=== PATIENT | female | born 1940 | race Caucasian/White ===

== ENCOUNTER 2016-10-02 09:39 | Inpatient (IN) | payer MEDICARE, OTHER ==
--- NOTE | 2016-09-29 11:24 | HP ---
DATE OF CLINIC: 09/27/2016 DIANN WELLER : 1940 PLANNED PROCEDURE: Right Total Hip Arthroplasty Revision DATE OF PROCEDURE: October 02, 2016 SURGEON: Dr. Hermann Figueroa PCP: Dr. 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 * Medication list reviewed with patient allergy list reviewed with patient. Mrs. Weller is in today pre-operatively for her upcoming revision right total hip arthroplasty with Dr. Figueroa on 10/02/16. Patient presents in good spirits and is ready to proceed. She denies recent illness or change in health. She did note having a near complete cervical spine fusion at [facility] approximately 2 years ago necessitating appropriate precautions during her upcoming R SUDEEP. Patient denies any prior surgical complications. She would like to rehabilitate at [facility] in [place] as she lives independently at home. Her recent consult with Dr. Figueroa follows. 75-year-old female well-known to me for bilateral knee arthroplasties as well as a right hybrid total hip arthroplasty from 2000. Her knee arthroplasties were by Dr. Wan almost 20 years ago. She has right groin discomfort as well as lateral hip pain. I saw her for a f/u in February and she seemed to be doing reasonably well with this, but has noted increasing lack of trust of the hip. No radicular pain, although she does have chronic, bilateral peripheral sensory neuropathy. She has known lumbar spondylosis, is s/p a previous decompression at L3-4 and L4-5. She denies knee pain. Specific reference to her hip radiographs in February demonstrated asymmetric polyethylene wear. She is wondering about treatment options. CURRENT MEDICATION * Acetaminophen 325 MG Tablet as needed 0 days, 0 refills * AmLODIPine Besylate 10 MG Tablet once a day 0 days, 0 refills * Atorvastatin Calcium 20 MG Tablet 1 once a day, 90 days, 1 refills * B Complex Tablet 1 once a day 0 days, 0 refills * Biotin 5000 MCG Capsule 1 once a day 0 days, 0 refills * Calcium 500 MG Tablet once a day 0 days, 0 refills * CoQ-10 100 MG Capsule once a day 0 days, 0 refills * Daily Multiple Vitamins/Min Tablet once a day 0 days, 0 refills * HydroCHLOROthiazide 12.5 MG Tablet 1 once a day, 90 days, 2 refills * Losartan Potassium 25 MG Tablet 1 once a day, 90 days, 3 refills * Lyrica 150 MG Capsule 1 tab daily. [facility], 90 days, 3 refills * Melatonin 3 MG Tablet 1 once a day 0 days, 0 refills * MetroCream 0.75 % Cream apply twice a day on affected area, 30 days, 2 refills * Nabumetone 750 MG Tablet use as directed Take two on Sun, Sun, Wed, Sun take 3 in divided doses , , Sat. [facility] scripts home delivery, 90 days, 1 refills * Omeprazole 20 MG Tablet Delayed Release 1 once a day. [facility], 90 days, 3 refills * Vitamin C 500 MG Tablet 1 once a day 0 days, 0 refills PAST MEDICAL/SURGICAL HISTORY Reported: No recent change in medical history. Medical: Bladder disease, joint problems Arthritis, a fracture neck, Reported numbness, Reported tingling, renal history, history of Arthritis, Depression, Hypertension, Osteoporosis, and Vertigo. Surgical / Procedural: Prior surgery neck fracture repaired 09/21/[address] [facility]. Replacement of a hip Right hip replaced 04/2001 and of a knee Right knee replaced 1996, Left knee replaced 08/1999. Tests: Blood pressure was high. Diagnoses: Hypertension High Blood Pressure. Thyroid disorder. Osteoarthritis. Anxiety disorder NOS Cataract Surgery right hip replacement - 2000 right knee replacement - 1996 left knee replacement - 1998 laminectomy lumbar - 2004. Procedural: * Colonoscopy with biopsy, DONNA 03/23/16 Surgical: * Tonsillectomy 194 * Orthopedic surgery both knees hip SOCIAL HISTORY Social history unchanged. Behavioral: Caffeine use, former smoker quit 1977, and non-smoker quit smoking stopped in 1977 after smoking half a pack a day for 15 years. Smoking status: Former smoker. Alcohol: Alcohol 1-2 per week and alcohol use - one per week. Home Environment: Lives with spouse. Work: Work history Retired 7 yrs ago from [employer] and occupation Retired. ALLERGIES * Nuts FAMILY HISTORY Father ill heart disease Mother ill cancer,hbp Children 2 Family history unchanged Mother osteoarthritis, breast ca, HTN, stroke GM from mother side osteoarthritis father heart disease Acute myocardial infarction father Hypertension mother grandmothers Stroke syndrome mother Depression father Breast cancer - mother REVIEW OF SYSTEMS Systemic: No fever and no recent weight change. Head: No head symptoms. Cardiovascular: Cardiovascular symptoms HTN. Pulmonary: No pulmonary symptoms. Gastrointestinal: No gastrointestinal symptoms. Psychological: No psychological symptoms. Skin: No skin lesions and no rash. PHYSICAL FINDINGS * Vitals taken 09/27/2016 12:03 pm BP-Sitting R 178/88 mmHg 100 - 120/56 - 80 BP Cuff Size Regular Pulse Rate-Sitting 78 bpm 50 - 100 Temp-Oral 97.3 F 96 - 101 Height 63 in 59 - 68 Weight 150 lbs 95 - 175 Body Mass Index 26.6 kg/m2 Body Surface Area 1.71 m2 Pain Level 7 Ears, Nose, Throat: * ENT: normal. Lungs: * Clear to auscultation. Cardiovascular: Heart Rate and Rhythm: * Normal. Abdomen: * Normal. Neurological: Motor: * Dominant Hand = Right Hand. Patient is a well-developed, well-nourished female in no acute distress, normal appearing mood and affect. She has a slightly wide-based, stiff-legged gait, negative Trendelenburg and level pelvis. Evaluation of the right hip girdle shows skin integrity to be well preserved. She has a well-healed posterolateral incision. No wounds, rashes or lesions. ROM is 100 degrees flexion, 55 degrees of abduction, 25 degrees IR, 60 degrees ER. She can adduct past the midline and extend fully. This is relatively comparable to the contralateral hip. She is tender directly over the trochanter bilaterally, worse on the right. NT in the groin, NT in the sciatic notch. She has mild discomfort with resisted hip flexion. Thigh is soft and NT. Evaluation of the knee shows a well-healed anterior incision. No swelling or effusion. No periarticular tenderness. Motion is 0-110 degrees. Good joint play and alignment. Calf is soft and NT. Distally she has some stocking glove paresthesias bilaterally, but otherwise neurovascular exam is grossly intact and symmetric without focal deficit. TESTS X-rays obtained 06/28/16 are compared to films from 02/23/16. She has a cemented femoral stem with a press-fit acetabular component. There is linear zone I lucency that has shown no evidence of progression. 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 ASSESSMENT 15 years post right SUDEEP with asymmetric polyethylene wear, nothing to suggest ivanna progressive loosening of the acetabular component. She also has fairly notable lumbar spondylosis. I suspect that her symptoms are multi-factorial and likely related to her back as well as her hip. She is also s/p bilateral total knee arthroplasties and she has degenerative disease of the contralateral hip, all of which may play a role. THERAPY * Patient fall risk screen positive. * Patient eligible for fall risk assessment. * Patient received fall risk assessment. COUNSELING/EDUCATION * Education and counseling Total Joint Book given PLAN * OTHER OxyCONTIN 10 MG T12A, 1 po q 12 hours-TO BE USED FOR AFTER SURGERY, 10 days, 0 refills TraMADol HCl 50 MG TABS, 1 po q 6 hours prn pain-TO BE USED FOR AFTER SURGERY, 3 days, 0 refills OxyCODONE HCl 5 MG TABS, 1-2 po q 4 hours for break thru pain if needed-TO BE USED FOR AFTER SURGERY, 3 days, 0 refills Right total hip arthroplasty revision. Discussed with patient in detail the limitations, expectations as well as risks and possible complications of surgery including, but not limited to wound problems or infection, neurovascular injury, continued hip pain or dysfunction, postop instability including the possibility of dislocation and/or postop leg length discrepancy, and the possibility of prosthetic wear or failure over time that may require additional operative or non-operative treatment. Patient also realizes the perioperative risks including risks associated with anesthesia and would like to proceed. A full PAR conference was held, questions and concerns addressed and informed consent was obtained. Patient will be sent from my office for completion of the preoperative workup[facility]. Patient will use enteric coated aspirin postoperatively for DVT prophylaxis. Patient would like to perform their postop PT at [facility] [place] with outpatient therapy to follow, right total hip arthroplasty protocol, posterior approach. CARE TEAM Emelia Freedman M.D. Internal Medicine Prieto Dudley MD Surgery Hermann Figueroa MD Orthopaedic Surgery Jaylon Herndon MD Sports Medicine Ciaran Razo MD [facility] CC: Ciaran Perez MD, [facility] [place] RS/sg
[~2016-10-02 09:39] MED LIST: BUPIVACAINE 0.25% (MDV) 20 ML in SODIUM CHLORIDE 0.9% FLUSH 20 ML IF PRN; BUPIVACAINE 0.25% (MDV) 24 ML, MORPHINE SULFATE 8 MG, EPINEPHRINE 0.3 MG in SODIUM CHLO... IF PRN; CEFAZOLIN SODIUM 2 GRAM PREMIX 100 ML IV PRN; CELECOXIB 200 MG CAPSULE PO ONE; CLONIDINE HCL 0.1 MG/24 HR (7 DAY PATCH) TD SCH; FAMOTIDINE 20 MG TABLET PO ONE; GABAPENTIN 600 MG TABLET PO ONE; ONDANSETRON 4 MG/2ML 2 ML VIAL IV ONE; OXYCODONE HCL 10 MG TAB.SR PO ONE; POLYMYXIN B SULFATE 500,000 UNITS, BACITRACIN 25,000 UNITS in SODIUM CHLORIDE 3 L IRRIG... IR PRN; TRAMADOL HCL 50 MG TABLET PO ONE; TRANEXAMIC ACID 1,000 MG in SODIUM CHLORIDE 0.9% 100 ML IV PRN
--- NOTE | 2016-12-01 10:45 | HP ---
DATE OF CLINIC: 11/22/2016 DIANN WELLER : 1940 PLANNED PROCEDURE: Right Total Hip Arthroplasty Revision DATE OF SURGERY: December 04, 2016 SURGEON: Hermann Figueroa M.D. 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 * Medication list reviewed with patient allergy list reviewed with patient. Mrs. Weller is in today pre-operatively for her upcoming revision right total hip arthroplasty with Dr. Figueroa on 12/04/16. Patient presents in good spirits and is ready to proceed. She denies recent illness or change in health. She reports her assisted living facility did have a recent [place] virus exposure and the residents were quarantined however the patient was never symptomatic. She did note having a near complete cervical spine fusion at [facility] approximately 2 years ago necessitating appropriate precautions during her upcoming R SUDEEP. Patient denies any prior surgical complications. She would like to rehabilitate at [facility] in [place] as she lives independently at home. Her recent consult with Dr. Figueroa follows. 76-year-old female well-known to me for bilateral knee arthroplasties as well as a right hybrid total hip arthroplasty from 2000. Her knee arthroplasties were by Dr. Wan almost 20 years ago. She has right groin discomfort as well as lateral hip pain. I saw her for a f/u in February and she seemed to be doing reasonably well with this, but has noted increasing lack of trust of the hip. No radicular pain, although she does have chronic, bilateral peripheral sensory neuropathy. She has known lumbar spondylosis, is s/p a previous decompression at L3-4 and L4-5. She denies knee pain. Specific reference to her hip radiographs in February demonstrated asymmetric polyethylene wear. She is wondering about treatment options. After discussion and review of treatment options, both operative and non-operative, she has elected to proceed with surgery and presents today preoperatively. CURRENT MEDICATION * Acetaminophen 325 MG Tablet as needed 0 days, 0 refills * AmLODIPine Besylate 10 MG Tablet once a day 0 days, 0 refills * Atorvastatin Calcium 20 MG Tablet 1 once a day, 90 days, 1 refills * B Complex Tablet 1 once a day 0 days, 0 refills * Biotin 5000 MCG Capsule 1 once a day 0 days, 0 refills * Calcium 500 MG Tablet once a day 0 days, 0 refills * CoQ-10 100 MG Capsule once a day 0 days, 0 refills * Daily Multiple Vitamins/Min Tablet once a day 0 days, 0 refills * HydroCHLOROthiazide 12.5 MG Tablet 1 once a day, 90 days, 2 refills * Losartan Potassium 25 MG Tablet 1 once a day, 90 days, 3 refills * Losartan Potassium 25 MG Tablet 1 once a day, 90 days, 2 refills * Lyrica 150 MG Capsule 1 tab daily. [facility], 90 days, 3 refills * Melatonin 3 MG Tablet 1 once a day 0 days, 0 refills * MetroCream 0.75 % Cream apply twice a day on affected area, 30 days, 2 refills * Nabumetone 750 MG Tablet use as directed Take two on Sun, Mon, Wed, FriTake 3 in divided doses , Th, Sat. [facility] scripts home delivery, 90 days, 1 refills * Omeprazole 20 MG Tablet Delayed Release 1 once a day. [facility], 90 days, 3 refills * OxyCODONE HCl 5 MG Tablet 1-2 po q 4 hours for break thru pain if needed-TO BE USED FOR AFTER SURGERY, 3 days, 0 refills * OxyCONTIN 10 MG Tablet ER 12 Hour Abuse-Deterrent 1 po q 12 hours-TO BE USED FOR AFTER SURGERY, 10 days, 0 refills * Vitamin C 500 MG Tablet 1 once a day 0 days, 0 refills PAST MEDICAL/SURGICAL HISTORY Reported: No recent change in medical history. Medical: Bladder disease, joint problems Arthritis, a fracture neck, Reported numbness, Reported tingling, renal history, history of Arthritis, Depression, Hypertension, Osteoporosis, and Vertigo. Surgical / Procedural: Prior surgery neck fracture repaired 09/21/2014 @ [facility]. Replacement of a hip Right hip replaced 04/2001 and of a knee Right knee replaced 1996, Left knee replaced 08/1999. Tests: Blood pressure was high. Diagnoses: Hypertension High Blood Pressure. Thyroid disorder. Osteoarthritis. Anxiety disorder NOS Cataract Surgery right hip replacement - 2000 right knee replacement - 1996 left knee replacement - 1998 laminectomy lumbar - 2004. Procedural: * Colonoscopy with biopsy, DONNA 03/23/16 Surgical: * Tonsillectomy 194 * Orthopedic surgery both knees hip SOCIAL HISTORY Social history unchanged. Behavioral: Caffeine use, former smoker quit 1977, and non-smoker quit smoking stopped in 1977 after smoking half a pack a day for 15 years. Smoking status: Former smoker. Alcohol: Alcohol 1-2 per week and alcohol use - one per week. Home Environment: Lives with spouse. Work: Work history Retired 7 yrs ago from [employer] and occupation Retired. ALLERGIES * Myrbetriq Reaction: Hives in mouth * Nuts FAMILY HISTORY Father ill heart disease Mother ill cancer,hbp Children 2 Family history unchanged Mother osteoarthritis, breast ca, HTN, stroke GM from mother side osteoarthritis father heart disease Acute myocardial infarction father Hypertension mother grandmothers Stroke syndrome mother Depression father Breast cancer - mother REVIEW OF SYSTEMS Systemic: No fever and no recent weight change. Head: No head symptoms. Cardiovascular: No cardiovascular symptoms. Pulmonary: No pulmonary symptoms. Gastrointestinal: No gastrointestinal symptoms. Psychological: No psychological symptoms. Skin: No skin lesions and no rash. PHYSICAL FINDINGS * Vitals taken 11/22/2016 02:34 pm BP-Sitting R 154/78 mmHg 100 - 120/56 - 80 Pulse Rate-Sitting 98 bpm 50 - 100 Temp-Oral 96.9 F 96 - 101 Height 63 in 59 - 68 Weight 150 lbs 12.8 oz 95 - 175 Body Mass Index 26.7 kg/m2 Body Surface Area 1.72 m2 Pain Level 8 Ears, Nose, Throat: * ENT: normal. Lungs: * Clear to auscultation. Cardiovascular: Heart Rate and Rhythm: * Normal. Abdomen: * Normal. Neurological: Motor: * Dominant Hand = Right Hand. Patient is a well-developed, well-nourished female in no acute distress, normal appearing mood and affect. She has a slightly wide-based, stiff-legged gait, negative Trendelenburg and level pelvis. Evaluation of the right hip girdle shows skin integrity to be well preserved. She has a well-healed posterolateral incision. No wounds, rashes or lesions. ROM is 100 degrees flexion, 55 degrees of abduction, 25 degrees IR, 60 degrees ER. She can adduct past the midline and extend fully. This is relatively comparable to the contralateral hip. She is tender directly over the trochanter bilaterally, worse on the right. NT in the groin, NT in the sciatic notch. She has mild discomfort with resisted hip flexion. Thigh is soft and NT. Evaluation of the knee shows a well-healed anterior incision. No swelling or effusion. No periarticular tenderness. Motion is 0-110 degrees. Good joint play and alignment. Calf is soft and NT. Distally she has some stocking glove paresthesias bilaterally, but otherwise neurovascular exam is grossly intact and symmetric without focal deficit. TESTS X-rays obtained 06/28/16 are compared to films from 02/23/16. She has a cemented femoral stem with a press-fit acetabular component. There is linear zone I lucency that has shown no evidence of progression. 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 ASSESSMENT 15 years post right SUDEEP with asymmetric polyethylene wear, nothing to suggest ivanna progressive loosening of the acetabular component. She also has fairly notable lumbar spondylosis. I suspect that her symptoms are multi-factorial and likely related to her back as well as her hip. She is also s/p bilateral total knee arthroplasties and she has degenerative disease of the contralateral hip, all of which may play a role. THERAPY * Patient fall risk screen positive walker. * Patient eligible for fall risk assessment. * Patient received fall risk assessment. PLAN * Unilateral primary osteoarthritis, right hip Physical Therapy: [facility] [phone] Right total hip arthroplasty revision. Discussed with patient in detail the limitations, expectations as well as risks and possible complications of surgery including, but not limited to wound problems or infection, neurovascular injury, continued hip pain or dysfunction, postop instability including the possibility of dislocation and/or postop leg length discrepancy, and the possibility of prosthetic wear or failure over time that may require additional operative or non-operative treatment. Patient also realizes the perioperative risks including risks associated with anesthesia and would like to proceed. A full PAR conference was held, questions and concerns addressed and informed consent was obtained. Patient will be sent from my office for completion of the preoperative workup. [facility] medical management. Patient will use enteric coated aspirin postoperatively for DVT prophylaxis. Patient would like to perform their postop PT at [facility] with outpatient therapy to follow, right total hip arthroplasty protocol, posterior approach. CARE TEAM Emelia Freedman M.D. Internal Medicine Prieto Dudley MD Surgery Hermann Figueroa MD Orthopaedic Surgery Jaylon Herndon MD Sports Medicine Ciaran Razo MD [facility] Bowen King MD Urology CC: Ciraan Perez MD, Emre Cortez [facility] RS/sg
[2016-12-04] MEDS ORDERED: BUPIVACAINE 0.25% (MDV) 24 ML, MORPHINE SULFATE 8 MG, EPINEPHRINE 0.3 MG in SODIUM CHLO... IF PRN (05:30)
[2016-12-04] MEDS ORDERED: CEFAZOLIN SODIUM 2 GRAM PREMIX 100 ML IV PRN (05:30)
[2016-12-04] MEDS ORDERED: CELECOXIB 200 MG CAPSULE PO ONE (05:30)
[2016-12-04] MEDS ORDERED: ONDANSETRON 4 MG/2ML 2 ML VIAL IV ONE (05:30)
[2016-12-04] MEDS ORDERED: FAMOTIDINE 20 MG TABLET PO ONE (05:30)
[2016-12-04] MEDS ORDERED: CLONIDINE HCL 0.1 MG/24 HR (7 DAY PATCH) TD SCH (05:30)
[2016-12-04] MEDS ORDERED: TRAMADOL HCL 50 MG TABLET PO ONE (05:30)
[2016-12-04] MEDS ORDERED: OXYCODONE HCL 10 MG TAB.SR PO ONE ×2 (05:30→05:33)
[2016-12-04] MEDS ORDERED: GABAPENTIN 600 MG TABLET PO ONE (05:30)
[2016-12-04] MEDS ORDERED: TRAMADOL HCL 50 MG TABLET ONE (05:33)
[2016-12-04] MEDS ORDERED: IV START KIT ONE (05:33)
[2016-12-04] MEDS ORDERED: ONDANSETRON 4 MG/2ML 2 ML VIAL ONE (05:33)
[2016-12-04] MEDS ORDERED: LACTATED RINGERS 1,000 ML ONE (05:33)
[2016-12-04] MEDS ORDERED: GABAPENTIN 600 MG TABLET ONE (05:34)
[2016-12-04] MEDS ORDERED: CLONIDINE HCL 0.1 MG/24 HR (7 DAY PATCH) TD ONE (05:34)
[2016-12-04] MEDS ORDERED: FAMOTIDINE 20 MG TABLET ONE (05:34)
[2016-12-04] MEDS ORDERED: CELECOXIB 200 MG CAPSULE ONE (05:34)
[2016-12-04] MEDS ORDERED: FENTANYL 100 MCG/2 ML VIAL ONE (06:46)
[2016-12-04] MEDS ORDERED: MIDAZOLAM HCL 1 MG/ML 2ML VIAL ONE ×2 (06:46→09:40)
[2016-12-04] MEDS ORDERED: PROPOFOL 20 ML IV ONE (06:47)
[2016-12-04] MEDS ORDERED: SPINAL PROCEDURAL TRAY 1 EACH ONE (07:01)
[2016-12-04] MEDS ORDERED: TRANEXAMIC ACID 1,000 MG in SODIUM CHLORIDE 0.9% 100 ML IV PRN (07:30)
[2016-12-04] MEDS ORDERED: BUPIVACAINE 0.25% (MDV) 20 ML in SODIUM CHLORIDE 0.9% FLUSH 20 ML IF PRN (07:30)
[2016-12-04] MEDS ORDERED: POLYMYXIN B SULFATE 500,000 UNITS, BACITRACIN 25,000 UNITS in SODIUM CHLORIDE 3 L IRRIG... IR PRN (07:30)
[2016-12-04] MEDS ORDERED: ONDANSETRON 4 MG/2ML 2 ML VIAL IV PRN ×2 (08:45→10:48)
[2016-12-04] MEDS ORDERED: HYDRALAZINE HCL 20 MG/1 ML VIAL IV PRN (08:45)
[2016-12-04] MEDS ORDERED: MEPERIDINE 25 MG/ML SYRINGE IV PRN (08:45)
[2016-12-04] MEDS ORDERED: FENTANYL 100 MCG/2 ML VIAL IV PRN (08:45)
[2016-12-04] MEDS ORDERED: PROMETHAZINE HCL 25 MG/ML VIAL IM PRN (08:45)
[2016-12-04] MEDS ORDERED: ATROPINE SULFATE 0.4 MG/1 ML VIAL IV PRN (08:45)
[2016-12-04] MEDS ORDERED: NALOXONE HCL 0.4 MG/ML VIAL IV PRN (08:45)
[2016-12-04] MEDS ORDERED: HYDROMORPHONE HCL 1 MG/ML SYRINGE IV PRN (08:45)
[2016-12-04] MEDS ORDERED: LACTATED RINGERS 1,000 ML IV SCH (08:45)
[2016-12-04] MEDS ORDERED: LABETALOL HCL 5 MG/ML 20ML VIAL IV PRN (08:45)
[2016-12-04] MEDS ORDERED: KETAMINE HCL UD SYRINGE 100 MG/2 ML IV ONE (09:04)
--- NOTE | 2016-12-04 10:16 | PCMBPN ---
Brief Post Op Note: Date of Procedure: 12/04/16 Preoperative Diagnosis: s/p right SUDEEP with instability and polyethylene wear Postoperative Diagnosis: same Procedure: revision right SUDEEP Surgeon: Hermann Figueroa MD Assist:Noah (JUAN) Anesthesia: spinal (Vigil) Findings: poly wear with intact components Condition: stable to PAR Complications: none IV Fluids: 1300 mLs of LR Urine Output: 600 mLs Estimated Blood Loss: 200 mLs Tourniquet Time: [N/A] Specimens: none Implants: dena/S&N Drains: none
[2016-12-04] MEDS ORDERED: HYDROMORPHONE HCL 0.5 MG/0.5 ML SYRINGE IV PRN (10:48)
[2016-12-04] MEDS ORDERED: KETOROLAC TROMETHAMINE 30 MG/ML 1 ML VIAL IV PRN (10:48)
[2016-12-04] MEDS ORDERED: MELATONIN 3 MG TABLET PO PRN (10:48)
[2016-12-04] MEDS ORDERED: CALCIUM CARBONATE 500 MG TAB.CHEW PO PRN (10:48)
[2016-12-04 10:58] VITALS: BMI 25.4
--- NOTE | 2016-12-04 11:05 | RAD ---
PELVIS HISTORY: Status post total hip arthroplasty revision. Frontal portable radiograph of the lower pelvis and hips. COMPARISON: 02/23/2016. FINDINGS: POSTPROCEDURAL CHANGE: Status post right total hip arthroplasty. ALIGNMENT: Grossly anatomic. FRACTURE: None identified. ADDITIONAL POSTPROCEDURAL FINDINGS: Soft tissue gas. IMPRESSION: Grossly unremarkable immediate post arthroplasty appearance of the right hip.
[2016-12-04] MEDS ORDERED: PUMP TUBING ONE (12:02)
[2016-12-04] MEDS: D5 1/2NS with 20 mEq KCL 1,000 ML IV SCH ×2 (12:07→20:36)
[2016-12-04] MEDS: NABUMETONE 500 MG TABLET PO SCH ×2 (12:19→20:30)
[2016-12-04] MEDS: REMOVE PATCH 1 EACH UNIT TD SCH ×13 (14:15→15:12)
--- NOTE | 2016-12-04 15:39 | CONS ---
YINKA WELLER [id number] HOSPITALIST CONSULATION DATE OF ADMISSION: December 04, 2016 DATE OF CONSULTATION: December 04, 2016 PHYSICIAN REQUESTING CONSULTATION: Hermann Figueroa M.D. REASON FOR CONSULTATION: For assistance in the perioperative management of the patient's medical problems. These medical problems include chronic essential hypertension, degenerative lumbar and cervical disc disease as well as generalized osteoarthritis. PROCEDURES PERFORMED DURING THE HOSPITALIZATION: Include a revision right total hip arthroplasty performed under spinal anesthesia without complications. SUMMARY OF ADMISSION AND HOSPITAL COURSE: Patient is a 76-year-old female with progressive right hip pain and evidence of asymmetric wear of the polyethylene components of her hip arthroplasty who was admitted for an elective revision arthroplasty today as mentioned above. REVIEW OF SYSTEMS: Negative for any recent illnesses such as fevers, chills, upper respiratory symptoms, cough, dyspnea, wheezing, chest pain, shortness of breath or palpitations. She denies problems with heart burn, nausea, vomiting, abdominal pain or diarrhea. She does suffer from chronic constipation and recently started Colace without very significant results. She has chronic arthralgias associated with her arthritis. She denies any headaches, fainting, blackouts or seizures. No urinary complaints. No recent falls. PAST MEDICAL HISTORY: Significant for: 1. Chronic essential hypertension. 2. She has had a history of obstructive sleep apnea but does not use a CPAP machine. 3. She has also had generalized osteoarthritis. 4. Degenerative disc disease involving the lower back and the cervical spine. 5. She has some mild peripheral neuropathy as well. 6. She has had no recent medical hospitalizations. PAST SURGICAL HISTORY: Significant for: 1. [place] surgery in April of 2015 for rectal prolapse. 2. She had cervical spine fusion in 2013 at C2 to C4. 3. She has had cataract surgery in the early 1999. 4. She had a right hip replacement originally in 2000. 5. Right knee replacement in 1996. 6. Left knee replacement in 1998. 7. Lumbar laminectomy in 2004. 8. She also had a colonoscopy with biopsy in March,. ALLERGIES: SHE HAS NO KNOWN DRUG ALLERGIES BUT IS ALLERGIC TO BRAZIL NUTS AND POSSIBLY HONEYBEE VENOM. CURRENT MEDICATIONS: Her current medication list consists of: 1. Coenzyme Q10 100 mg daily. 2. Lyrica 150 mg daily. 3. Prilosec 20 mg daily. 4. Nabumetone 750 mg tablets, two tablets daily on Sunday, Sunday, Sunday and Sunday and three tablets on Sunday, and Sunday. 5. Multivitamin with minerals once daily. 6. Metronidazole cream applied to the face twice daily for rosacea. 7. Melatonin 3 mg at bedtime as needed for sleep. 8. Cozaar 25 mg daily. 9. Calcium citrate with vitamin D twice daily. 10. Biotin 5 mg daily. 11. Bio D emulsion forte 0.03 cc orally daily. 12. B complex tablet one daily. 13. Vitamin C 500 mg daily. 14. Amlodipine 10 mg daily. 15. Extra strength Tylenol 1000 mg three times daily. FAMILY HISTORY: Significant for a mother who of breast cancer. Father had dementia and coronary artery disease. SOCIAL HISTORY: She is . She lives at the [facility] in [place] which is an independent living facility. She is a former smoker of about 15 pack-years. She quit in 1977. She drinks alcohol maybe once a week. Denies illicit drug use. Her primary care provider is Dr. Ciaran Razo. PHYSICAL EXAMINATION: VITAL SIGNS: BMI is 25.4, weight is 65.1 kilograms. Temperature is 98.8, pulse 72, blood pressure 169/81, respirations 17, oxygen saturation 99% on two liters. GENERAL: This is a well developed, well nourished female in no acute distress. HEENT: Exam is unremarkable. NECK: Supple without lymphadenopathy or thyromegaly. CHEST: Clear to auscultation bilaterally. HEART: Regular rate and rhythm without a murmur. ABDOMEN: Soft, nontender, nondistended with positive bowel sounds. EXTREMITIES: Showed no peripheral edema. Dorsalis pedis pulses are 2+ in the feet bilaterally. Surgical dressing over the right hip is clean, dry and intact. NEUROLOGIC: Exam is nonfocal. LABORATORY STUDIES: Metabolic panel done on November 22, 2016, showed normal electrolytes and a creatinine of 1.2. CBC done on November 22, 2016 showed a white count of 9.3, hemoglobin 11.8, and a platelet count of 462,000. Coagulation profile was normal. Urinalysis was unremarkable. DIAGNOSTIC IMAGING: Included a chest x-ray on September 13, 2016 which showed no acute abnormality. EKG: ASSESSMENT/PLAN: 1. Patient has had a revision right total hip arthroplasty. We will defer to the orthopedic service for management of this. Venous thromboembolism risk is moderate and mechanical measures have been prescribed in addition to full strength aspirin daily. 2. She has chronic essential hypertension on three different medications. I have written parameters for the amlodipine and losartan to be held for low blood pressures. 3. She has degenerative cervical and lumbar disc disease but is managing her chronic pain with nonsteroidal and Tylenol as well as Lyrica. I am going to go ahead and continue her Lyrica and it looks like Dr. Figueroa has cleared her to continue her Relafen. This should be managed adequately with her usual medications plus postoperative pain management. 4. She has some mild chronic constipation, and I have ordered MiraLax scheduled daily at bedtime for her during her hospital stay. 5. She has generalized osteoarthritis which also is managed as above. 6. Further treatment and recommendations will depend on her hospital course. The hospitalist will follow the patient in the perioperative period. She will return to the care of her primary care provider at discharge. cc: Hermann Figueroa M.D. Ciaran Razo M.D.
[2016-12-04] MEDS: OXYCODONE HCL 5 MG TABLET PO PRN ×2 (15:54→20:27)
[2016-12-04] MEDS ORDERED: TRAMADOL HCL 50 MG TABLET PO PRN (16:30)
[2016-12-04] MEDS: ACETAMINOPHEN 500 MG TABLET PO SCH ×2 (16:38→22:55)
[2016-12-04] MEDS: CEFAZOLIN SODIUM 1 GRAM PREMIX 1 G in Premix (D5W) 50 ml 1 EACH IV SCH (16:38)
[2016-12-04] MEDS: DOCUSATE SODIUM 100 MG CAPSULE PO SCH (20:18)
[2016-12-04] MEDS: ASCORBIC ACID 500 MG TABLET PO SCH (20:18)
[2016-12-04] MEDS: POLYETHYLENE GLYCOL 3350 17 G POWD.SUSP PO SCH (20:19)
[2016-12-05] MEDS: CEFAZOLIN SODIUM 1 GRAM PREMIX 1 G in Premix (D5W) 50 ml 1 EACH IV SCH (00:38)
[2016-12-05] MEDS: ACETAMINOPHEN 500 MG TABLET PO SCH ×4 (04:40→23:35)
[2016-12-05] MEDS: D5 1/2NS with 20 mEq KCL 1,000 ML IV SCH (04:41)
[2016-12-05] MEDS: OXYCODONE HCL 5 MG TABLET PO PRN ×5 (04:48→21:49)
[2016-12-05] MEDS ORDERED: REMOVE PATCH 1 EACH UNIT TD SCH (05:30)
[2016-12-05 06:14] LABS: HEMATOCRIT 29.5 % (37.0-47.0); HEMOGLOBIN 9.6 gm/l (12.0-16.0); MEAN CELL VOLUME 100.7 fl (81.0-99.0); MEAN CORPUSCULAR HEMOGLOBIN 32.8 pg (27.0-31.0); MEAN CORPUSCULAR HGB CONC 32.5 g/dl (33.0-37.0); RED CELL DISTRIBUTION WIDTH 13.4 % (11.5-14.5)
[2016-12-05 06:30] LABS: CALCIUM 8.6 mg/dL (8.6-10.3)
[2016-12-05] MEDS ORDERED: HYDROCHLOROTHIAZIDE 12.5 MG CAP PO SCH (09:00)
[2016-12-05] MEDS: AMLODIPINE BESYLATE 5 MG TABLET PO SCH (09:31)
[2016-12-05] MEDS: ASPIRIN (ENTERIC COATED) 325 MG TABLET.EC PO SCH (09:39)
[2016-12-05] MEDS: ASCORBIC ACID 500 MG TABLET PO SCH ×2 (09:39→21:50)
[2016-12-05] MEDS: MULTIVITAMINS 1 TAB TABLET PO SCH (09:39)
[2016-12-05] MEDS: DOCUSATE SODIUM 100 MG CAPSULE PO SCH ×2 (09:40→21:49)
[2016-12-05] MEDS: PANTOPRAZOLE 40 MG TABLET DR PO SCH (09:40)
[2016-12-05] MEDS: LOSARTAN POTASSIUM 50 MG TABLET PO SCH (09:40)
[2016-12-05] MEDS: PREGABALIN 75 MG CAP PO SCH (09:40)
[2016-12-05] MEDS: NABUMETONE 500 MG TABLET PO SCH ×3 (09:41→21:50)
[2016-12-05] MEDS ORDERED: MAGNESIUM HYDROXIDE 30 ML UDCUP PO PRN (10:07)
[2016-12-05] MEDS ORDERED: REMOVE PATCH 1 EACH UNIT TD ONE (10:07)
--- NOTE | 2016-12-05 10:28 | PDOC43 ---
- Subjective Findings: Pt seen this morning having more pain than she did last evening. PT is in the room to get her out of bed. Subjective: Reports Pain Tolerable, Denies Chest Pain, Denies Shortness of Breath, Denies Nausea, Denies Vomiting, Denies Fever - Objective Vital Signs Temperature 98.0 F 12/05/16 07:13 Pulse Rate 76 12/05/16 07:13 Respiratory Rate 14 12/05/16 07:13 Blood Pressure 137/72 12/05/16 07:13 O2 Saturation by Pulse Oximetry 96 12/05/16 07:13 Oxygen Delivery Method Room Air Oxygen Flow Rate 0 Laboratory 12/05/16 05:45 12/05/16 05:45 12/05/16 05:45 RBC 2.93 L MCV 100.7 H MCH 32.8 H MCHC 32.5 L Estimated GFR 81 H Active Medication Orders Category Date Time Status Acetaminophen [Tylenol] Med 12/04/16 17:00 Active 1,000 mg PO Q6H Amlodipine Besylate [Norvasc] Med 12/05/16 09:00 Active 10 mg PO DAILY Ascorbic Acid [Vitamin C] Med 12/04/16 21:00 Active 500 mg PO BID Aspirin (Enteric Coated) [Ecotrin] Med 12/05/16 09:00 Active 325 mg PO DAILY Bisacodyl [Dulcolax] Med 12/07/16 10:07 Active 10 mg [place] DAILY PRN Calcium Carbonate [Tums] Med 12/04/16 10:48 Active 1,000 - 2,000 mg PO Q2H PRN Docusate Sodium [Colace] Med 12/04/16 21:00 Active 100 mg PO BID Hydrochlorothiazide Med 12/05/16 09:00 Active 12.5 mg PO DAILY Hydromorphone HCl [Dilaudid] Med 12/04/16 10:48 Active 0.5 mg IV Q1H PRN Losartan Potassium [Cozaar] Med 12/05/16 09:00 Active 25 mg PO DAILY Magnesium Hydroxide [Milk of Magnesia] Med 12/05/16 10:07 Active 30 ml PO DAILY PRN Melatonin Med 12/04/16 10:48 Active 3 mg PO BEDTIME PRN Multivitamins [One-A-Day] Med 12/05/16 09:00 Active 1 tab PO DAILY Nabumetone [Relafen] Med 12/04/16 11:48 Active 750 mg PO [email or web address] Nabumetone [Relafen] Med 12/05/16 09:00 Active 750 mg PO [email or web address] Ondansetron 4 mg/2ml Vial [Zofran] Med 12/04/16 10:48 Active 4 - 6 mg IV Q6H PRN Oxycodone HCl [Roxicodone] Med 12/04/16 10:48 Active 5 - 10 mg PO Q4H PRN Pantoprazole Sodium [Protonix] Med 12/05/16 09:00 Active 40 mg PO DAILY Polyethylene Glycol 3350 [Miralax] Med 12/04/16 21:00 Active 17 g PO BEDTIME Pregabalin [Lyrica] Med 12/05/16 09:00 Active 150 mg PO DAILY Sodium Chloride 0.9% Flush [Normal Saline 10ml Flush] Med 12/04/16 10:48 Active 10 - 50 ml IV PRN PRN Sodium Chloride 0.9% Flush [Normal Saline 10ml Flush] Med 12/04/16 17:00 Active 10 ml IV Q8HR Tramadol HCl [Ultram] Med 12/04/16 16:30 Active 50 mg PO Q6H PRN Intake and Output 12/03/16 12/04/16 12/05/16 23:59 23:59 23:59 Intake Total 3699 2790 Output Total 3200 925 Balance 499 1865 General: Afebrile HEENT: Atraumatic Lungs: Normal Air Movement Abdomen: Soft, Non-Distended Rectal Exam: Deferred Skin: Normal Color Neurological: Alert, Oriented x 4 - Right Lower Extremity Incision: Dressing Clean/Dry/Intact Motor: Extensor Hallucis Longus: 5/5, Tibialis Anterior: 5/5, Gastrocnemius: 5/5 , Peroneals: 5/5, Quadriceps: 2/5 Gross Sensation to Light Touch: Present: Deep Peroneal Nerve Motion: Calf soft NT Knee rom 0-90 Gentle rom of hip without pain - Problems (1) Status post revision of total hip replacement Status: AcuteAssessment/Plan: Pod#1 1. Physical Therapy:Mobilize with PT/OT. Encouraged bed exercise 2. Pain Control:Per protocol. May need to add long acting narcotic 3. DVT Prophylaxis: ASA, foot pumps and mobility 4. Disposition:Doing fair 5. Medical Issues:Anemia secondary to blood loss- will repeat h/h in the am. Hyponatremia -secondary to volume overload- asymptomatic at this point will monitor
--- NOTE | 2016-12-05 11:38 | PDOC43 ---
- Subjective Chief Complaint: s/p R SUDEEP Revision Main c/o is poor pain control last PM. Controlled now. Anxiety re: d/c plans- wants to go to SNF and not home. Subjective: Reports Pain Tolerable, Reports Tolerating Diet Well, Denies Shortness of Breath, Denies Cough, Denies Chest Pain, Denies Abdominal Pain, Denies Nausea, Denies Vomiting, Denies Fever, Denies Chills - Objective Vital Signs Temperature 97.9 F 12/05/16 11:20 Pulse Rate 77 12/05/16 11:20 Respiratory Rate 16 12/05/16 11:20 Blood Pressure 184/86 12/05/16 11:20 O2 Saturation by Pulse Oximetry 93 12/05/16 11:20 Oxygen Delivery Method Room Air Oxygen Flow Rate 0 Intake and Output 12/04/16 12/05/16 12/06/16 06:59 06:59 06:59 Intake Total 5740 749 Output Total 4125 425 Balance 1615 324 General: Alert, Oriented x3, Cooperative, Other (Anxious appearing. Calms with verbal reassurance.) HEENT: Atraumatic, Mucous membr. moist/pink Lungs: Clear to Auscultation Bilaterally Cardiovascular: Regular Rate and Rhythm Abdomen: Soft, Normal Bowel Sounds, Non-Distended, No Tenderness Extremities: Full ROM, Normal Pulses, No Edema Laboratory 12/05/16 05:45 12/05/16 05:45 Current Medications: Current meds reviewed in EMR. - Problems: Assessment/Plan (1) Status post revision of total hip replacement Status: AcuteAssessment/Plan: Doing well. Pain control adequate now. Post-op care as per ortho. Con't PT/ OT. DVT proph with mech/ASA as per ortho protocol. Caremanagement to address d/ c plan. (2) HTN (hypertension) Qualifiers: Hypertension type: essential hypertension Qualifier Code: (I10) Essential (primary) hypertension Status: ChronicAssessment/Plan: Stable. Parameters written for usual meds. (3) DJD (degenerative joint disease) Qualifiers: Osteoarthritis location: unspecified site Status: ChronicAssessment/Plan : Con't pain regimen as per ortho. VTE Prophylaxis: ASA. Disposition: Anticipate d/c home vs SNF in 1-2 days.
[2016-12-05] MEDS: POLYETHYLENE GLYCOL 3350 17 G POWD.SUSP PO SCH (21:48)
[2016-12-06] MEDS: OXYCODONE HCL 5 MG TABLET PO PRN ×4 (01:43→22:25)
[2016-12-06] MEDS: ACETAMINOPHEN 500 MG TABLET PO SCH ×4 (05:07→22:26)
[2016-12-06 06:01] LABS: HEMATOCRIT 28.7 % (37.0-47.0); HEMOGLOBIN 9.6 gm/l (12.0-16.0)
--- NOTE | 2016-12-06 08:07 | PDOC43 ---
- Subjective Findings: Pt seen this am up and doing fine. She was just up and using the restroom. Pain controlled at this point. Subjective: Reports Pain Tolerable, Denies Chest Pain, Denies Shortness of Breath, Denies Nausea, Denies Vomiting, Denies Fever - Objective Vital Signs Temperature 98.7 F 12/06/16 07:04 Pulse Rate 71 12/06/16 07:04 Respiratory Rate 16 12/06/16 07:46 Blood Pressure 152/83 12/06/16 07:04 O2 Saturation by Pulse Oximetry 94 12/06/16 07:04 Oxygen Delivery Method Room Air Oxygen Flow Rate 0 Laboratory 12/06/16 05:30 12/06/16 05:30 Active Medication Orders Category Date Time Status Acetaminophen [Tylenol] Med 12/04/16 17:00 Active 1,000 mg PO Q6H Amlodipine Besylate [Norvasc] Med 12/05/16 09:00 Active 10 mg PO DAILY Ascorbic Acid [Vitamin C] Med 12/04/16 21:00 Active 500 mg PO BID Aspirin (Enteric Coated) [Ecotrin] Med 12/05/16 09:00 Active 325 mg PO DAILY Bisacodyl [Dulcolax] Med 12/07/16 10:07 Active 10 mg [place] DAILY PRN Calcium Carbonate [Tums] Med 12/04/16 10:48 Active 1,000 - 2,000 mg PO Q2H PRN Docusate Sodium [Colace] Med 12/04/16 21:00 Active 100 mg PO BID Hydromorphone HCl [Dilaudid] Med 12/04/16 10:48 Active 0.5 mg IV Q1H PRN Losartan Potassium [Cozaar] Med 12/05/16 09:00 Active 25 mg PO DAILY Magnesium Hydroxide [Milk of Magnesia] Med 12/05/16 10:07 Active 30 ml PO DAILY PRN Melatonin Med 12/04/16 10:48 Active 3 mg PO BEDTIME PRN Multivitamins [One-A-Day] Med 12/05/16 09:00 Active 1 tab PO DAILY Nabumetone [Relafen] Med 12/04/16 11:48 Active 750 mg PO [email or web address] Nabumetone [Relafen] Med 12/05/16 09:00 Active 750 mg PO [email or web address] Ondansetron 4 mg/2ml Vial [Zofran] Med 12/04/16 10:48 Active 4 - 6 mg IV Q6H PRN Oxycodone HCl [Roxicodone] Med 12/04/16 10:48 Active 5 - 10 mg PO Q4H PRN Pantoprazole Sodium [Protonix] Med 12/05/16 09:00 Active 40 mg PO DAILY Polyethylene Glycol 3350 [Miralax] Med 12/04/16 21:00 Active 17 g PO BEDTIME Pregabalin [Lyrica] Med 12/05/16 09:00 Active 150 mg PO DAILY Sodium Chloride 0.9% Flush [Normal Saline 10ml Flush] Med 12/04/16 10:48 Active 10 - 50 ml IV PRN PRN Sodium Chloride 0.9% Flush [Normal Saline 10ml Flush] Med 12/04/16 17:00 Active 10 ml IV Q8HR Tramadol HCl [Ultram] Med 12/04/16 16:30 Active 50 mg PO Q6H PRN Intake and Output 12/04/16 12/05/16 12/06/16 23:59 23:59 23:59 Intake Total 3699 3830 1050 Output Total 3200 1700 900 Balance 499 2130 150 General: Afebrile HEENT: Atraumatic Lungs: Normal Air Movement Abdomen: Non-Distended Skin: Normal Color Neurological: Alert, Oriented x 4 Psych/Mental Status: Normal Affect, Normal Mood - Right Lower Extremity Motor: Extensor Hallucis Longus: 5/5, Tibialis Anterior: 5/5, Gastrocnemius: 5/5 , Peroneals: 5/5, Quadriceps: 3/5 Gross Sensation to Light Touch: Present: Deep Peroneal Nerve, Superficial Peroneal Nerve Capillary Refill: < 3 Seconds Motion: Calf soft NT Rom knee 0-75 Min assist to SLR - Problems (1) Status post revision of total hip replacement Status: AcuteAssessment/Plan: Pod#2 1. Physical Therapy:Mobilize with PT/OT. Encouraged bed exercise 2. Pain Control:Per protocol. May need to add long acting narcotic 3. DVT Prophylaxis: ASA, foot pumps and mobility 4. Disposition:Doing fine. Probable d/c tomorrow SNF vs home with care 5. Medical Issues: Hyponatremia asymptomatic, will hold HCTZ and fluid restrict repeat BMP in the am. Anemia secondary to surgery asymptomatic. Appreciate hospitalist care and input.
[2016-12-06] MEDS: NABUMETONE 500 MG TABLET PO SCH ×2 (09:04→21:10)
[2016-12-06] MEDS: PANTOPRAZOLE 40 MG TABLET DR PO SCH (09:05)
[2016-12-06] MEDS: ASCORBIC ACID 500 MG TABLET PO SCH ×2 (09:05→21:10)
[2016-12-06] MEDS: PREGABALIN 75 MG CAP PO SCH (09:05)
[2016-12-06] MEDS: LOSARTAN POTASSIUM 50 MG TABLET PO SCH (09:05)
[2016-12-06] MEDS: ASPIRIN (ENTERIC COATED) 325 MG TABLET.EC PO SCH (09:05)
[2016-12-06] MEDS: AMLODIPINE BESYLATE 5 MG TABLET PO SCH (09:06)
[2016-12-06] MEDS: MULTIVITAMINS 1 TAB TABLET PO SCH (09:06)
[2016-12-06] MEDS: DOCUSATE SODIUM 100 MG CAPSULE PO SCH ×2 (09:06→21:10)
--- NOTE | 2016-12-06 15:56 | PDOC43 ---
- Subjective Chief Complaint: s/p R SUDEEP Revision - Objective Vital Signs Temperature 98.2 F 12/06/16 13:45 Pulse Rate 78 12/06/16 13:45 Respiratory Rate 16 12/06/16 13:45 Blood Pressure 140/61 12/06/16 13:45 O2 Saturation by Pulse Oximetry 96 12/06/16 13:45 Oxygen Delivery Method Room Air Oxygen Flow Rate 0 Intake and Output 12/04/16 12/05/16 12/06/16 23:59 23:59 23:59 Intake Total 3699 3830 1050 Output Total 3200 1700 900 Balance 499 2130 150 Laboratory 12/06/16 05:30 12/06/16 05:30 Current Medications: Current meds reviewed in EMR. - Problems: Assessment/Plan (1) Status post revision of total hip replacement Status: AcuteAssessment/Plan: Doing well. Pain control adequate now. Post-op care as per ortho. Con't PT/ OT. DVT proph with mech/ASA as per ortho protocol. Care management to address d/ c plan. (2) DJD (degenerative joint disease) Qualifiers: Osteoarthritis location: unspecified site Status: ChronicAssessment/Plan : Con't pain regimen as per ortho. (3) HTN (hypertension) Qualifiers: Hypertension type: essential hypertension Qualifier Code: (I10) Essential (primary) hypertension Status: ChronicAssessment/Plan: Stable. Parameters written for usual meds. (4) Hyponatremia Status: AcuteAssessment/Plan: 2nd to volume shifts and fluid overload in surgery. She has had this in the past. Will fluid restrict and provide additional sodium chloride. Monitor (5) Anemia Qualifiers: Anemia type: unspecified type Qualifier Code: (D64.9) Anemia, unspecified Status: AcuteAssessment/Plan: unknown if chronic. Stable overnight. Contributing factors include surgical blood loss and IVF dilution VTE Prophylaxis: ASA. Disposition: Anticipate d/c home vs SNF in 1-2 days.
[2016-12-06] MEDS: SODIUM CHLORIDE 1 G TABLET PO SCH (21:10)
[2016-12-06] MEDS: POLYETHYLENE GLYCOL 3350 17 G POWD.SUSP PO SCH (21:10)
[2016-12-07] MEDS: OXYCODONE HCL 5 MG TABLET PO PRN (02:24)
[2016-12-07] MEDS: ACETAMINOPHEN 500 MG TABLET PO SCH ×2 (05:33→11:23)
[2016-12-07 05:54] LABS: HEMATOCRIT 30.6 % (37.0-47.0); HEMOGLOBIN 10.1 gm/l (12.0-16.0)
[2016-12-07 06:13] LABS: CALCIUM 9.3 mg/dL (8.6-10.3)
[2016-12-07 07:18] VITALS: BP 137/61
--- NOTE | 2016-12-07 08:41 | PDOC43 ---
- Subjective Findings: Pt seen this morning. She is improving. States pain is better. She did have a large loose BM this morning. Otherwise no c/o. Will be going to [facility] today. Subjective: Reports Flatus, Reports Pain Tolerable, Denies Chest Pain, Denies Shortness of Breath, Denies Nausea, Denies Vomiting, Denies Fever - Objective Vital Signs Temperature 98.1 F 12/07/16 07:16 Pulse Rate 74 12/07/16 07:16 Respiratory Rate 16 12/07/16 07:16 Blood Pressure 137/61 12/07/16 07:16 O2 Saturation by Pulse Oximetry 93 12/07/16 07:16 Oxygen Delivery Method Room Air Oxygen Flow Rate 0 Laboratory 12/07/16 05:30 12/07/16 05:30 Active Medication Orders Category Date Time Status Acetaminophen [Tylenol] Med 12/04/16 17:00 Active 1,000 mg PO Q6H Amlodipine Besylate [Norvasc] Med 12/05/16 09:00 Active 10 mg PO DAILY Ascorbic Acid [Vitamin C] Med 12/04/16 21:00 Active 500 mg PO BID Aspirin (Enteric Coated) [Ecotrin] Med 12/05/16 09:00 Active 325 mg PO DAILY Bisacodyl [Dulcolax] Med 12/07/16 10:07 Active 10 mg [place] DAILY PRN Calcium Carbonate [Tums] Med 12/04/16 10:48 Active 1,000 - 2,000 mg PO Q2H PRN Docusate Sodium [Colace] Med 12/04/16 21:00 Active 100 mg PO BID Hydromorphone HCl [Dilaudid] Med 12/04/16 10:48 Active 0.5 mg IV Q1H PRN Losartan Potassium [Cozaar] Med 12/05/16 09:00 Active 25 mg PO DAILY Magnesium Hydroxide [Milk of Magnesia] Med 12/05/16 10:07 Active 30 ml PO DAILY PRN Melatonin Med 12/04/16 10:48 Active 3 mg PO BEDTIME PRN Multivitamins [One-A-Day] Med 12/05/16 09:00 Active 1 tab PO DAILY Nabumetone [Relafen] Med 12/04/16 11:48 Active 750 mg PO [email or web address] Nabumetone [Relafen] Med 12/05/16 09:00 Active 750 mg PO [email or web address] Ondansetron 4 mg/2ml Vial [Zofran] Med 12/04/16 10:48 Active 4 - 6 mg IV Q6H PRN Oxycodone HCl [Roxicodone] Med 12/04/16 10:48 Active 5 - 10 mg PO Q4H PRN Pantoprazole Sodium [Protonix] Med 12/05/16 09:00 Active 40 mg PO DAILY Polyethylene Glycol 3350 [Miralax] Med 12/04/16 21:00 Active 17 g PO BEDTIME Pregabalin [Lyrica] Med 12/05/16 09:00 Active 150 mg PO DAILY Sodium Chloride Med 12/06/16 21:00 Active 1 g PO BID Sodium Chloride 0.9% Flush [Normal Saline 10ml Flush] Med 12/04/16 10:48 Active 10 - 50 ml IV PRN PRN Sodium Chloride 0.9% Flush [Normal Saline 10ml Flush] Med 12/04/16 17:00 Active 10 ml IV Q8HR Tramadol HCl [Ultram] Med 12/04/16 16:30 Active 50 mg PO Q6H PRN Intake and Output 12/05/16 12/06/16 12/07/16 23:59 23:59 23:59 Intake Total 3830 2300 600 Output Total 1700 2400 825 Balance 2130 -100 -225 General: Afebrile HEENT: Atraumatic Lungs: Normal Air Movement Abdomen: Soft, Non-Distended Skin: Normal Color Neurological: Alert, Oriented x 4 Psych/Mental Status: Normal Affect, Normal Mood - Right Lower Extremity Incision: Well Approximated, No Drainage, No Erythema, No Ecchymosis Motor: Extensor Hallucis Longus: 5/5, Tibialis Anterior: 5/5, Gastrocnemius: 5/5 , Peroneals: 5/5, Quadriceps: 3/5 Gross Sensation to Light Touch: Present: Deep Peroneal Nerve, Superficial Peroneal Nerve Motion: Calf soft NT Rom knee 0-85 Gentle rom hip w/o pain - Problems (1) Status post revision of total hip replacement Status: AcuteAssessment/Plan: Pod#3 1. Physical Therapy:Mobilize with PT/OT. Encouraged bed exercise. Will continue PT at SNF. WBAT 2. Pain Control:Doing well with oxycodone. 3. DVT Prophylaxis: ASA, foot pumps and mobility 4. Disposition:Doing fine. Probable d/c today to SNF. If meets criteria 5. Medical Issues: Hyponatremia asymptomatic, NA+ improved this am. Appreciate hospitalist care and input.
[2016-12-07] MEDS: AMLODIPINE BESYLATE 5 MG TABLET PO SCH (08:44)
[2016-12-07] MEDS: LOSARTAN POTASSIUM 50 MG TABLET PO SCH (08:44)
[2016-12-07] MEDS: PANTOPRAZOLE 40 MG TABLET DR PO SCH (08:44)
[2016-12-07] MEDS: PREGABALIN 75 MG CAP PO SCH (08:45)
[2016-12-07] MEDS: NABUMETONE 500 MG TABLET PO SCH (08:45)
[2016-12-07] MEDS: SODIUM CHLORIDE 1 G TABLET PO SCH (08:45)
[2016-12-07] MEDS: MULTIVITAMINS 1 TAB TABLET PO SCH (08:45)
[2016-12-07] MEDS: ASCORBIC ACID 500 MG TABLET PO SCH (08:45)
[2016-12-07] MEDS: ASPIRIN (ENTERIC COATED) 325 MG TABLET.EC PO SCH (08:45)
[2016-12-07] MEDS: DOCUSATE SODIUM 100 MG CAPSULE PO SCH ×2 (08:45→09:17)
--- NOTE | 2016-12-07 08:57 | PDOC43 ---
- Subjective Chief Complaint: s/p R SUDEEP Revision Patient awake and alert, feeling well. She is looking forward to leaving today. Denies muscle cramps, lightheadedness, abdominal pain. Subjective: Reports Pain Tolerable, Reports Tolerating Diet Well, Reports Adequate Oral Intake, Reports Bowel Movement, Reports Urinating Without Difficulty, Denies Shortness of Breath, Denies Cough, Denies Chest Pain, Denies Abdominal Pain, Denies Nausea, Denies Vomiting - Objective Vital Signs Temperature 98.1 F 12/07/16 07:16 Pulse Rate 74 12/07/16 07:16 Respiratory Rate 16 12/07/16 07:16 Blood Pressure 137/61 12/07/16 07:16 O2 Saturation by Pulse Oximetry 93 12/07/16 07:16 Oxygen Delivery Method Room Air Oxygen Flow Rate 0 Intake and Output 12/05/16 12/06/16 12/07/16 23:59 23:59 23:59 Intake Total 3830 2300 600 Output Total 1700 2400 825 Balance 2130 -100 -225 General: Alert, Oriented x3, Cooperative, No Acute Distress HEENT: Atraumatic, PERRLA, EOMI, Mucous membr. moist/pink Lungs: Clear to Auscultation Bilaterally, Normal Air Movement Cardiovascular: Regular Rate and Rhythm, Normal S1, Normal S2 Abdomen: Soft, Non-Distended, No Rigid, No Tenderness, No Rebounding Extremities: No Cyanosis, No Edema Neurological: Normal Speech Psych/Mental Status: Normal Mood Laboratory 12/07/16 05:30 12/07/16 05:30 Current Medications: Current meds reviewed in EMR. - Problems: Assessment/Plan (1) Status post revision of total hip replacement Status: AcuteAssessment/Plan: Doing well. Pain control adequate now. Post-op care as per ortho. Con't PT/ OT. DVT proph with mech/ASA as per ortho protocol. Care management to address d/ c plan. (2) DJD (degenerative joint disease) Qualifiers: Osteoarthritis location: unspecified site Status: ChronicAssessment/Plan : Con't pain regimen as per ortho. (3) HTN (hypertension) Qualifiers: Hypertension type: essential hypertension Qualifier Code: (I10) Essential (primary) hypertension Status: ChronicAssessment/Plan: Stable. Parameters written for usual meds. (4) Hyponatremia Status: AcuteAssessment/Plan: 2nd to volume shifts and fluid overload in surgery. She has had this in the past. Will fluid restrict and provide additional sodium chloride. Monitor Improving, sodium this morning is 130 and she remains asymptomatic (5) Anemia Qualifiers: Anemia type: unspecified type Qualifier Code: (D64.9) Anemia, unspecified Status: AcuteAssessment/Plan: unknown if chronic. Stable overnight. Contributing factors include surgical blood loss and IVF dilution VTE Prophylaxis: ASA. Disposition: Anticipate d/c home vs SNF in 1-2 days.
[2016-12-07] MEDS ORDERED: BISACODYL 10 MG SUP PR PRN (10:07)
--- NOTE | 2016-12-07 10:27 | OP ---
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 POSTOPERATIVE DIAGNOSIS: Same PROCEDURE: Revision Right Total Hip Arthroplasty COMPONENTS: 20 degree +4 lipped cross-linked polyethylene liner with a 32mm +5 cobalt chrome femoral head for an [place] V40 femoral stem. SURGEON: Henry ASSIST: Noah GARRETT) ANESTHESIA: Spinal per Vigil EBL: 200 cc URINE OUTPUT: 600 cc IVF REPLACEMENT: Per anesthesia, 1.3 liters crystalloid. DRAINS: None COMPLICATIONS: None SPECIMENS: None HISTORY: Briefly, patient is a 76-year-old female who is over 15 years post right SUDEEP from which she has done well until recently. Unfortunately she has developed a feeling of instability consistent with her exam. Radiographs demonstrate asymmetric polyethylene wear. Recommendation to consider revision arthroplasty. For additional details, refer to previously dictated Preoperative History and Physical Exam. A full PAR conference was held, questions and concerns were addressed, and informed consent was obtained. FINDINGS: There was asymmetric polyethylene wear, particularly superior-posterior with some cavitation. No evidence of acetabular component loosening or malposition. Similarly, no evidence of femoral stem loosening or malposition. PROCEDURE: The patient was taken to the operating room. Spinal anesthetic was administered. She was placed in the lateral decubitus position on the operating room table and held with the peg board positioner. Shira prominences were well padded and an axillary roll was placed. The hip girdle and lower extremity were then prepped and draped out in the usual sterile fashion. Preoperative IV antibiotics were given empirically. Intraoperative DVT prophylaxis consisted of bilateral mechanical foot pumps. Personal filtration suits were used as was a closed room environment. We utilized the distal 2/3 of the previous posterolateral incision. This was posterior to the greater trochanter and curving posterior and superior proximal to the trochanter. We dissected through subcutaneous tissue down to the gluteus fascia. There was a fair amount of fibrotic tissue. Electrocautery was used at this point and throughout the duration of the case to establish and maintain hemostasis. The gluteus fascia was incised in line with the incision as was the proximal IT band and the muscle fibers split to expose the underlying bursal tissue which was very fibrotic. I bluntly created a tissue plane, particularly anteriorly and placed a deep self retaining field retractor. Tranexamic acid was infiltrated over 10 minutes, 1 gram dose, per protocol. A similar 2nd dose was given at initiation of closure. There were no defined external rotators. The pseudo capsular tissue was reflected off of the femur in a U fashion and tagged for later repair. This was quite thick and we debrided this and then carefully with sharp and blunt techniques, under direct visualization, debrided the superior, inferior joint and capsular tissue as well as interposed fibrotic tissue. Once this had been released it allowed for dislocation of the hip, which was brought up into the operative field. We disimpacted the femoral head. This was a +5, 28. There was no obvious damage or significant issues with the cobalt chrome. We cleaned around the calcar of the femur. There was no evidence of malposition or gross loosening of the femoral stem. Protecting the trunnion we bluntly dissected anterior and superior and were able to translate the femur anteriorly exposing the underlying acetabulum. Acetabular component was cleaned of debris circumferentially under direct visualization. There was obvious posterior-superior asymmetric wear. This was removed in the standard fashion with a partially threaded large fragment screw. The apical hole cover was removed as well. The cluster screw holes were inferior and there was no evidence of osteolysis at the screw holes or the apical hole. Component position was felt to be reasonable. We then trialed both the acetabular component and femoral component with neutral as well as a +4 lipped liner and a 0 as well as a +5 32mm head, which was the largest size that we could go with off of this particular stem. We were happiest with the +4 offset 20 degree lipped liner dialed posterior-superior. With reduction we had approximately 70 degrees of internal rotation at 90 degrees of flexion and full extension with no instability on external rotation. There was good soft tissue balance and approximately equal leg lengths. Satisfied, trial components were removed and we impacted the true acetabular liner. We then again trialed with a 0 and +5 32mm head. We were happy with stability as previously discussed with the +5. The trunnion was then cleaned and dried and the cobalt chrome femoral head was impacted. The hip was then reduced with stability as previously discussed. Satisfied, we turned our attention to closure. The wound was copiously irrigated with antibiotic pulsatile lavage. We then advanced the pseudo capsular tissue to the gluteus medius insertion. The gluteus fascia and IT band were closed with a running number two PDO Quill suture. 1st periarticular injection was given at this point per protocol into the capsule, synovium, gluteus and external rotators. The subcutaneous tissue was closed with interrupted 2-0 and 3-0 Vicryl and the skin was closed with a running 4-0 Monocryl stitch with placement of a Prineo. The 2nd periarticular injection was done at this point per protocol into the subcutaneous tissue superiorly and anteriorly to the incision. A sterile hip dressing was then applied, the patient was returned to the supine position, transferred to their hospital bed, and sent to the postoperative recovery room in stable condition. They tolerated the procedure well. Sponge, instrument, and needle count were correct. CHERRIE/mrw CC: Ciaran Razo MD [employer] BRITNI Cortez
--- NOTE | 2016-12-12 12:36 | DS ---
Diann WELLER [id number] : 1940 DATE OF ADMISSION: December 04, 2016 DATE OF DISCHARGE: December 07, 2016 DISCHARGE DIAGNOSES: Right hip instability and polyethylene wear. HOSPITAL PROCEDURES: Right total hip revision. SURGEON: Hermann Figueroa M.D. 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 For the full history please see the chart note. BRIEF HOSPITAL COURSE: Patient was admitted on December 04, 2016 Dr. Hermann Figueroa performed a right total hip arthroplasty. Patient was moved to the recovery room in stable condition. They were given 4 doses of antibiotic for empiric coverage. DVT prophylaxis consisted of enteric-coated aspirin, DANNI hose and AV foot pumps. PT was instituted postop day, 0 with right total hip arthroplasty protocol, weightbearing as tolerated. Their incision site remained benign, their vital signs remained stable and they remained neurally and vascularly intact through the duration of the stay. They were discharged home postop day 3 to continue outpatient PT and OT at [facility] with right total hip arthroplasty protocol, weightbearing as tolerated keeping total hip precautions in mind. The patient was consulted by hospitalist Dr. Isreal Simental and Dr. Angel Sandra for management of comorbidities. DISCHARGE INSTRUCTIONS: 1. Keep the wound site clean and dry, change dressing daily or as needed. 2. Continue the use of DANNI hose bilaterally. 3. Ice pack over the wound site prn. 4. Continue total hip precautions. 5. Outpatient PT at [facility] with right total hip arthroplasty protocol, weightbearing as tolerated. MEDICATIONS: 1. Patient is to resume normal preop medications. 2. Anti-coagulation will be with enteric-coated aspirin 325 mg one each day for six weeks. 3. Pain management will be with Oxycodone, 5mg 1-2 every 4 hours prn for breakthrough pain. 4. Patient was also advised on utilization of a multi-vitamin with mineral daily as well as Vitamin C, 500mg, daily for 1 month. 5. Patient encouraged to take an iron supplement in the form of ferrous sulfate, 325mg daily for 4 weeks. 6. Colace, 100mg, b.i.d. until regular bowel movement. FOLLOW-UP: Please return to the clinic as scheduled for your first scheduled postop check. Prior to that point in time please call with any questions or concerns. Job [id number] CC: Law Razo M.D.
== END 2016-12-07 12:30 | DRG 468 ==
LOC: OR 12-04 05:32 → MS 12-04 11:21
PROVIDERS: ADMIT Orthopaedic Surgery; ATTEND Orthopaedic Surgery
PROC: 0SP909Z Removal of Liner from Right Hip Joint, Open Approach (ICD-10-PCS; principal; 2016-12-04)
PROC: 0SUR09Z Supplement Right Hip Joint, Femoral Surface with Liner, Open Approach (ICD-10-PCS; 2016-12-04)
DX: T84.020A Dislocation of internal right hip prosthesis, initial encounter (principal); I10 Essential (primary) hypertension; M51.36 Other intervertebral disc degeneration, lumbar region; M50.30 Other cervical disc degeneration, unspecified cervical region; K59.00 Constipation, unspecified

== ENCOUNTER 2017-01-04 02:05 | Inpatient (IN) | payer MEDICARE, OTHER ==
[2017-01-04] MEDS ORDERED: ETOMIDATE 2 MG/ML 10ML VIAL IV ONE ×2 (02:52→03:15)
[2017-01-04] MEDS ORDERED: HYDROMORPHONE HCL 2 MG/ML SYRINGE IV PRN (02:53)
[2017-01-04] MEDS ORDERED: BLISTEX LIPSTICK 1 EACH TP PRN (02:53)
[2017-01-04] MEDS ORDERED: SODIUM CHLORIDE 0.9% 500 ML ONE (02:53)
[2017-01-04] MEDS ORDERED: TRAZODONE HCL 50 MG TABLET PO PRN (02:53)
[2017-01-04] MEDS ORDERED: ACETAMINOPHEN 325 MG TABLET PO PRN (02:53)
[2017-01-04] MEDS ORDERED: MENTHOL/CETYLPYRD 1 EACH LOZENGE PO PRN (02:53)
[2017-01-04] MEDS ORDERED: PUMP TUBING ONE (03:52)
[2017-01-04] MEDS: ONDANSETRON 4 MG/2ML 2 ML VIAL IV PRN (04:00)
[2017-01-04] MEDS: D5 1/2NS with 20 mEq KCL 1,000 ML IV SCH ×2 (04:01→16:37)
[2017-01-04 04:17] VITALS: BMI 24.1
[2017-01-04] MEDS: HYDROMORPHONE HCL 1 MG/ML SYRINGE IV PRN (05:24)
[2017-01-04 06:53] LABS: URINE BILIRUBIN NEGATIVE (NEGATIVE); URINE BLOOD NEGATIVE (NEGATIVE); URINE GLUCOSE (UA) NEGATIVE (NEGATIVE); URINE LEUKOCYTE ESTERASE NEGATIVE (NEGATIVE); URINE NITRITE NEGATIVE (NEGATIVE); URINE PROTEIN NEGATIVE (NEGATIVE); URINE UROBILINOGEN NORMAL (0-1 mg/dl)
[2017-01-04 06:55] LABS: URINE APPEARANCE CLEAR; URINE COLOR YELLOW
[2017-01-04 06:58] LABS: URINE BACTERIA 0; URINE EPITHELIAL CELLS FEW /hpf; URINE RBC 0 /hpf; URINE WBC NEG /hpf
[2017-01-04] MEDS ORDERED: UBIDECARENONE 100 MG PO SCH (09:00)
[2017-01-04] MEDS ORDERED: DOCUSATE SODIUM 100 MG CAPSULE PO SCH (09:00)
[2017-01-04] MEDS ORDERED: BIOTIN 5 MG PO SCH (09:00)
[2017-01-04] MEDS ORDERED: BIO D MULSION FORTE PO SCH (09:00)
[2017-01-04] MEDS ORDERED: LOSARTAN POTASSIUM 50 MG TABLET PO SCH ×2 (09:00→15:11)
[2017-01-04] MEDS ORDERED: HYDROCHLOROTHIAZIDE 12.5 MG CAP PO SCH ×2 (09:00→15:11)
--- NOTE | 2017-01-04 09:20 | RAD ---
Exam: Single view right hip INDICATION: Postreduction. COMPARISON: 01/04/2017 0328 hours, 12/04/2016 and 06/28/2016 INDICATION: Postreduction. FINDINGS: A single AP view of the right hip was obtained at 0328 hours and compared with a similar exam obtained immediately prior to reduction. Unfortunately, the time stamp on the initial exam is the same as the postreduction exam as the examination was done portably, with both cassettes right at the same time. Postreduction exam demonstrates anatomic alignment at the right hip, with the femoral component in the acetabular component. No displaced fracture is identified. IMPRESSION: Satisfactory alignment of the right hip postreduction.
--- NOTE | 2017-01-04 09:20 | HP ---
Diann WELLER : 1940 [id number] PROCEDURE NOTE AND HISTORY AND PHYSICAL DATE OF SERVICE: January 04, 2017 HISTORY OF PRESENT ILLNESS: This is a 76-year-old female who is about six weeks out from a right revision total hip arthroplasty with Dr. Figueroa who presented to the [facility] today with a dislocation of her right hip. She was reduced and returned home and redislocated at home but she returned to the [facility]. We were contacted and she was transferred to [facility] and she was seen by orthopedics on consult in the emergency department. She complained of hip pain, and inability to bear weight. She described a hyperflexion event in both cases that led to her dislocation. She has not had any pain or difficulty around the hip arthroplasty prior to this. She had her initial surgery done 15 years ago and the revision done like I said about six weeks ago. She denies any fevers or chills. She has no other extremity complaints. PAST MEDICAL HISTORY: Is significant for: 1. Hypertension. 2. Urinary incontinence. PAST SURGICAL HISTORY: As noted above. REVIEW OF SYSTEMS: No recent constitutional symptoms to include fevers and chills. No recent cardiovascular symptoms to include chest pain or palpitations. No recent respiratory symptoms to include shortness of breath or recent infections. PHYSICAL EXAM: Patient is a well-developed, well-nourished female in no acute distress. She is awake and alert, and conversant throughout the encounter. HEENT: She is normocephalic and atraumatic. Extraocular movements are intact. NECK: Is soft and supple. LUNGS: Are clear to auscultation bilaterally. HEART: Regular rate and rhythm. ABDOMEN: Is soft, nontender, nondistended. FOCUSED MUSCULOSKELETAL EXAMINATION: Demonstrates a shortened internally rotated right lower extremity with pain with any motion at the hip. Her surgical scar is healing appropriately although there is some bruising around the scar. She has intact sensation and a warm and well perfused leg. All motion of the hip leads to significant discomfort. RADIOGRAPHS: Review of x-rays from outside facility demonstrate the dislocation of her right hip, subsequent reduction and then a recurrent dislocation. ASSESSMENT: This is a 76-year-old female with an unstable right hip after a right total hip arthroplasty, currently dislocated. PLAN: The patient was sedated in the emergency department using etomidate by the emergency room physicians. I performed a closed reduction of her right hip under sedation. She tolerated this without difficulty. She was placed into an abduction pillow. Images were obtained which show a reduced hip. She will be admitted to the floor for physical therapy to review her posterior hip precautions and determine if she remains stable while maintaining precautions. We will get her an abduction breaks ordered and make arrangements for a period of time of a rehab facility. I am going to get a hospitalist consult to assist in medical management during her stay and we will follow her during her time in the hospital. Job [id number] Cc: [facility]
--- NOTE | 2017-01-04 09:21 | RAD ---
Exam: Single view right hip COMPARISON: 12/04/2016 and 06/28/2016 INDICATION: Right hip dislocation. FINDINGS: Single AP view of the right hip was obtained. Right total hip arthroplasty is again appreciated. The femoral component is dislocated and resides superior to the acetabular component. No displaced fracture is identified. IMPRESSION: Right hip dislocation in the setting of hip arthroplasty.
[2017-01-04] MEDS: VITAMIN B COMPLEX W/B-12 1 EACH TABLET PO SCH (09:23)
[2017-01-04] MEDS: PANTOPRAZOLE 40 MG TABLET DR PO SCH (09:23)
[2017-01-04] MEDS: AMLODIPINE BESYLATE 5 MG TABLET PO SCH (09:23)
[2017-01-04] MEDS: PREGABALIN 75 MG CAP PO SCH (09:23)
[2017-01-04] MEDS: MULTIVIT W/ MINERALS 1 TAB TABLET PO SCH (09:24)
[2017-01-04] MEDS: ASCORBIC ACID 500 MG TABLET PO SCH (09:24)
[2017-01-04] MEDS: OXYCODONE/ACETAMINOPHEN 5/325 MG TABLET PO PRN ×3 (10:55→19:43)
[2017-01-04] MEDS ORDERED: MELATONIN 3 MG TABLET PO PRN (15:07)
[2017-01-04] MEDS ORDERED: ACETAMINOPHEN 500 MG TABLET PO PRN (15:07)
[2017-01-04] MEDS ORDERED: NABUMETONE 750 MG TABLET PO SCH (15:15)
--- NOTE | 2017-01-04 15:45 | RAD ---
Exam: Portable chest COMPARISON: 09/13/2016 INDICATION: Cough and wheezing. FINDINGS: A semierect AP portable view of the chest demonstrates a normal cardiac silhouette. Lungs are well-inflated. There is no focal airspace disease or pleural effusion. Scoliosis is again appreciated within the spine. Hardware is noted within the cervical spine but incompletely evaluated. IMPRESSION: No acute pulmonary process.
[2017-01-04 15:49] LABS: ABSOLUTE NEUTROPHIL COUNT 9.3 K/mm3 (1.8-7.7); BASO % 0.3 % (0.2-1.0); EOS # 0.2 (0.0-0.5); EOS % 1.8 % (0.9-2.9); HEMATOCRIT 29.9 % (37.0-47.0); HEMOGLOBIN 9.8 gm/l (12.0-16.0); IMM NEUT% 0.3 % (0-1); LYMPH # 1.1 (1.0-4.8); LYMPH % 8.8 % (15-45); MEAN CELL VOLUME 100.3 fl (81.0-99.0); MEAN CORPUSCULAR HEMOGLOBIN 32.9 pg (27.0-31.0); MEAN CORPUSCULAR HGB CONC 32.8 g/dl (33.0-37.0); MONO # 1.2 (0.0-0.8); MONO % 10.1 % (4-12); NEUT % 78.7 % (43-75); PLATELET COUNT 510 K/mm3 (130-400); RED CELL DISTRIBUTION WIDTH 14.1 % (11.5-14.5)
[2017-01-04 16:18] LABS: CALCIUM 8.7 mg/dL (8.6-10.3)
--- NOTE | 2017-01-04 16:59 | CONS ---
YINKA WELLER [id number] DATE OF : 1940 DATE OF ADMISSION: 01/04/2017 PRIMARY CARE PROVIDER: Dr. Ciaran Holley CONSULTATION REQUESTED BY: Dr. Jayce Ann REASON FOR CONSULTATION: Medical management. CHIEF COMPLAINT: Right hip dislocation. PROCEDURES PERFORMED THIS HOSPITALIZATION: Relocation of right prosthetic hip under anesthesia in the emergency room early this morning. HISTORY OF PRESENT ILLNESS: Ms. Weller is a 76-year-old who underwent revision of a right total hip arthroplasty on 12/04/2016. She discharged a few days later to half-way. She was at a half-way facility for seven to ten days where she did come down with an upper respiratory infection. For a few weeks she had a cough and dyspnea. She does feel that that is much improved now, however, one week ago she was seen at Emergency Room for a hypertensive crisis and her losartan and hydrochlorothiazide doses were increased. Then last night she had acute pain and was unable to ambulate. She was initially taken to Emergency Room and then transferred to [facility] where she was seen at 3:00 in the morning and her hip was relocated. She was admitted to Med-Surg and a medical consultation was requested. REVIEW OF SYSTEMS: HEENT - she does report feeling faint the last few days. No headache. She complains of dry mouth. Respiratory - as above, she has had a cough and dyspnea, which she feels is getting better. Cardiac - no chest pain or palpitations. Gastrointestinal - no nausea or vomiting. She does have constipation. No hematochezia or melena. Genitourinary - chronic urinary incontinence. No dysuria. Musculoskeletal - generalized arthritis and acute pain in the right hip. Constitutional - no fevers or chills. PAST MEDICAL HISTORY: 1. Hypertension as above, with recent hypertensive crisis and increase in her medications. 2. Degenerative joint disease, with lumbar and cervical disk disease. 3. Obstructive sleep apnea, not using a CPAP machine. 4. Mild peripheral neuropathy. 5. Chronic urinary incontinence. PAST SURGICAL HISTORY: 1. Repair of a rectal prolapse in April of 2015 at [facility]. 2. Cervical spine fusion C2-C4 in 2013. 3. Cataract surgery in the early . 4. Right hip replacement originally in 2000 and revision on 12/04/2016. 5. Right knee replacement in 1996. 6. Left knee replacement in 1998. 7. Lumbar laminectomy in 2004. 8. Colonoscopy with biopsy in March of 2016. ALLERGIES: 1. No known drug allergies. 2. She has allergies to [place] nuts and honeybee venom. MEDICATIONS: Prior to admission: 1. Losartan dose had been increased to 50 mg daily. 2. Hydrochlorothiazide dose had been increased to 25 mg daily. 3. Ascorbic acid 500 mg daily. 4. Amlodipine 10 mg daily. 5. Acetaminophen 1,000 mg three times a day as needed. 6. Docusate sodium 100 mg by mouth twice a day. 7. Calcium with vitamin D one tablet twice a day. 8. Biotin 5 mg daily. 9. B-Complex one daily. 10. Aspirin 325 mg by mouth daily. For a period of time after discharge from the half-way facility she had not been taking that, but had restarted within the last week. 11. Nabumetone 750 mg tablets two tablets daily, alternating with three tablets daily. 12. Multivitamin one daily. 13. Melatonin 3 mg at bedtime. 14. Oxycodone 5 mg as needed, about twice a day. 15. Omeprazole 20 mg daily. 16. CoQ10, 100 mg daily. 17. Lyrica 150 mg daily. HABITS: She is a former smoker, with a [id number] history, quit in 1977. She drinks alcohol about once a week. SOCIAL HISTORY: She lives at [facility] in [place], which is independent living. As above, she was recently at half-way rehab, I believe at [facility]. She has a supportive son who is at the bedside this afternoon. She is . FAMILY HISTORY: Mother of breast cancer. Father had dementia and coronary artery disease. PHYSICAL EXAMINATION: GENERAL: This is a pleasant 76-year-old, denying any discomfort, with a brace on her right hip. VITAL SIGNS: Temperature 98.1 degrees Fahrenheit. Pulse 73. Blood pressure 127/61. Respiratory rate 16. Oxygen saturation 92% on room air. HEENT: Pupils equal, round and reactive. Extraocular muscles intact. Oropharynx is moist. CHEST: Shows scattered expiratory wheezes. She does have a moist cough as well. HEART: Regular, with a 2/6 systolic murmur. ABDOMEN: Soft and nontender. Normal bowel tones. No organomegaly. EXTREMITIES: Good dorsalis pedis pulses. No edema. She has the brace on the right hip. NEUROLOGIC: Alert and oriented. No focal deficits. LABORATORIES: Urinalysis done this morning was entirely negative. IMAGING: X-ray of the right hip showed the dislocation. ASSESSMENT: Ms. Weller is a 76-year-old with recent right hip arthroplasty who has suffered a dislocation and had relocation of the joint in the emergency department. She has recent upper respiratory symptoms and current cough and wheezing. She has underlying hypertension, obstructive sleep apnea and degenerative joint disease. PLAN: 1. Regular admit to Med-Surg. 2. For the respiratory symptoms, will check a CBC and chest x-ray, as well as a chemistry profile now, and treat as indicated. 3. For hypertension, continue her recently increased outpatient medications. 4. For degenerative joint disease, continue her Nabumetone, and Tylenol and oxycodone as needed. 5. For sleep apnea, supplemental oxygen when sleeping if necessary. 6. Venous thromboembolism prophylaxis, with aspirin and mechanical means. 7. Full code status. 8. Anticipate transfer to half-way rehab when she qualifies for that.
[2017-01-04] MEDS: ASPIRIN (ENTERIC COATED) 325 MG TABLET.EC PO SCH (17:01)
[2017-01-04] MEDS: OXYCODONE HCL 5 MG TABLET PO PRN ×2 (17:38→22:01)
[2017-01-04] MEDS: NS/Potassium Chlor 20 mEq 1,000 ML IV SCH (22:00)
[2017-01-04] MEDS: DOCUSATE SODIUM 100 MG CAPSULE PO SCH (22:01)
[2017-01-05] MEDS: HYDROMORPHONE HCL 1 MG/ML SYRINGE IV PRN ×2 (00:34→00:41)
[2017-01-05] MEDS: OXYCODONE/ACETAMINOPHEN 5/325 MG TABLET PO PRN ×2 (04:50→10:01)
[2017-01-05] MEDS: NS/Potassium Chlor 20 mEq 1,000 ML IV SCH ×2 (05:36→11:10)
[2017-01-05 06:56] LABS: ABSOLUTE NEUTROPHIL COUNT 6.8 K/mm3 (1.8-7.7); BASO % 0.4 % (0.2-1.0); EOS # 0.8 (0.0-0.5); EOS % 7.6 % (0.9-2.9); HEMATOCRIT 27.7 % (37.0-47.0); HEMOGLOBIN 9.2 gm/l (12.0-16.0); IMM NEUT # 0.1 K/mm3 (0-0.2); IMM NEUT% 0.6 % (0-1); LYMPH # 1.2 (1.0-4.8); LYMPH % 11.5 % (15-45); MEAN CELL VOLUME 99.3 fl (81.0-99.0); MEAN CORPUSCULAR HGB CONC 33.2 g/dl (33.0-37.0); MEAN PLATELET VOLUME 8.1 fl (7.4-10.4); MONO # 1.2 (0.0-0.8); MONO % 11.7 % (4-12); NEUT % 68.2 % (43-75); PLATELET COUNT 473 K/mm3 (130-400); RED CELL DISTRIBUTION WIDTH 13.9 % (11.5-14.5)
[2017-01-05 07:15] LABS: CALCIUM 8.4 mg/dL (8.6-10.3)
[2017-01-05 07:28] VITALS: BP 151/68
[2017-01-05] MEDS: OXYCODONE HCL 5 MG TABLET PO PRN (07:38)
[2017-01-05] MEDS: ONDANSETRON 4 MG/2ML 2 ML VIAL IV PRN (07:39)
[2017-01-05] MEDS ORDERED: NABUMETONE 750 MG TABLET PO SCH (09:00)
[2017-01-05] MEDS: DOCUSATE SODIUM 100 MG CAPSULE PO SCH (09:50)
[2017-01-05] MEDS: ASPIRIN (ENTERIC COATED) 325 MG TABLET.EC PO SCH (09:51)
[2017-01-05] MEDS: PREGABALIN 75 MG CAP PO SCH (09:52)
[2017-01-05] MEDS: AMLODIPINE BESYLATE 5 MG TABLET PO SCH (09:53)
[2017-01-05] MEDS: PANTOPRAZOLE 40 MG TABLET DR PO SCH (09:54)
[2017-01-05] MEDS: MULTIVIT W/ MINERALS 1 TAB TABLET PO SCH (09:59)
[2017-01-05] MEDS: ASCORBIC ACID 500 MG TABLET PO SCH (09:59)
[2017-01-05] MEDS: VITAMIN B COMPLEX W/B-12 1 EACH TABLET PO SCH (09:59)
== END 2017-01-05 13:35 | disposition home or self-care (01) | DRG 561 ==
LOC: ED 02:05 → MS 03:01 → OBSVTOIN 15:10 → UNDODISOB 01-05 13:35
PROVIDERS: ADMIT Orthopaedic Surgery; ATTEND Orthopaedic Surgery
PROC: 0QS6XZZ Reposition Right Upper Femur, External Approach (ICD-10-PCS; principal; 2017-01-04)
DX: T84.020A Dislocation of internal right hip prosthesis, initial encounter (principal); I10 Essential (primary) hypertension; M47.898 Other spondylosis, sacral and sacrococcygeal region; G47.30 Sleep apnea, unspecified